=== PATIENT | male | born 1945 | race Caucasian/White ===

== ENCOUNTER → 2016-10-31 | Outpatient (CLI) | payer MEDICARE | END | disposition home or self-care (01) | LOC: RADUSWWP 13:33 | PROVIDERS: ATTEND Internal Medicine Rheumatology | DX: I82.409 Acute embolism and thrombosis of unspecified deep veins of unspecified lower extremity (principal) | CPT/HCPCS: 93923 ==

== ENCOUNTER → 2017-08-12 | Outpatient (CLI) | payer MEDICARE ==
--- NOTE | 2017-08-12 09:06 | BD ---
EXAMINATION TYPE: . Bone Density DATE OF EXAM: 08/12/2017 COMPARISON: NONE CLINICAL HISTORY: Pathologic tibial stress fracture Height: 5 FT 11 IN Weight: 258 FRAX RISK QUESTIONS: History of Fracture in Adulthood: YES Secondary Osteoporosis: Rheumatoid Arthritis: YES RISK FACTORS HISTORY OF: Active: YES Lost more than 2 inches in height since high school: YES MEDICATIONS: Additional Medications: AZITHROMYCIN, HYDROXYCHLOROQUINE, MONTELUKAST, CLARITIN, ALVESCO,FLONASE Additional History: RECENT STRESS FX TIB/FIB EXAM MEASUREMENTS: Bone mineral densitometry was performed using the Elevate System. Bone mineral density as measured about the Lumbar spine is: ----- L1-L4(G/cm2): 1.251 T Score Values are as follows: ----- L2: 0.5 ----- L3: 0.2 ----- L4: 1.4 ----- L1-L4: 0.6 BASELINE Bone mineral density about the R hip (g/cm2): 0.857 Bone mineral density about the L hip (g/cm2): 0.866 T Score values are as follows: -----R Neck: -1.3 -----L Neck: -1.2 -----R Total: -0.8 -----L Total: -1.0 BASELINE IMPRESSION: Osteopenia (T Score between -2.5 and -1) at femoral neck level in both hips. There is slightly increased risk of fracture and the patient may be considered for treatment. Re-Screen 2-5 years. NOTE: T-SCORE=SD OF THE YOUNG ADULT MEAN.
== END | disposition home or self-care (01) ==
LOC: RADBDWWP 07:03
PROVIDERS: ATTEND Internal Medicine Rheumatology
DX: M85.851 Other specified disorders of bone density and structure, right thigh (principal); M85.852 Other specified disorders of bone density and structure, left thigh
CPT/HCPCS: 77080

== ENCOUNTER 2018-02-15 08:49 | Emergency (ER) | payer MEDICARE ==
[2018-02-15 09:17] VITALS: RESP 18
[2018-02-15] MEDS ORDERED: SODIUM CHLORIDE 0.9% 500 ML 500 ML IV STA (09:44)
[2018-02-15] MEDS ORDERED: ONDANSETRON 4 MG/2 ML VIAL IVP STA (09:44)
[2018-02-15] MEDS ORDERED: MORPHINE SULFATE 4 MG/ML SYRINGE IV STA (09:44)
--- NOTE | 2018-02-15 09:52 | ED ---
General Adult HPI - General Chief complaint: Abdominal Pain Stated complaint: POSS KIDNEY STONE Time Seen by Provider: 02/15/18 09:22 Source: patient, RN notes reviewed Mode of arrival: ambulatory Limitations: no limitations - History of Present Illness Initial comments: Patient 72-year-old male presenting to the emergency room today with a chief complaint of right-sided flank pain. Patient does admit that he had pain that started 5 days ago. He states he was going to come here to the hospital when pain went away and improved. Patient states that last night pain return. He states it is located in the right flank with some radiation to the front. States feels similar to kidney stones that he's had in the past. Patient states that on his way here the pain was worse and now is beginning to improve once again. States still feeling some discomfort that is similar to kidney stones that he's had before. Patient does admit that he did see some blood with a blood clot in his urine the other day when he was straining his urine. Admits to nausea. Patient denies any other complaints. Patient denies any recent fever, chills, shortness of breath, chest pain, nausea or vomiting, headaches or visual changes, or any other complaints. - Related Data Home Medications Medication Instructions Recorded Confirmed Ascorbic Acid [Vitamin C] 500 mg PO BID 02/15/18 02/15/18 Cholecalciferol [Vitamin D3] 1,000 unit PO BID 02/15/18 02/15/18 Folic Acid 1 mg PO DAILY 02/15/18 02/15/18 Glucosam/Zach-Msm1/C/Clay/Bosw 1 tab PO BID 02/15/18 02/15/18 [Glucosamine-Chondroitin Tablet] Hydroxychloroquine Sulfate 200 mg PO BID 02/15/18 02/15/18 [Plaquenil] Montelukast [Singulair] 10 mg PO HS 02/15/18 02/15/18 Multivitamins, Thera [Multivitamin 1 tab PO DAILY 02/15/18 02/15/18 (formulary)] Naproxen Sodium [Aleve] 220 mg PO BID 02/15/18 02/15/18 [place]-3 Fatty Acids/Fish Oil [Fish 1 cap PO BID 02/15/18 02/15/18 Oil 1,000 mg Softgel] Previous Rx's Medication Instructions Recorded Hydrocodone/Acetaminophen [[place] 1 each PO Q6HR PRN #12 tab 02/15/18 5-325] Ondansetron Odt [Zofran ODT] 4 mg PO Q8HR PRN #20 tab 02/15/18 Tamsulosin [Flomax] 0.4 mg PO DAILY #10 cap 02/15/18 Allergies Allergy/AdvReac Type Severity Reaction Status Date / Time hydromorphone HCl Allergy Rash/Hives Verified 02/15/18 10:35 [From Dilaudid] Review of Systems ROS Statement: Those systems with pertinent positive or pertinent negative responses have been documented in the HPI. ROS Other: All systems not noted in ROS Statement are negative. Past Medical History Past Medical History: CVA/TIA, Hypertension Additional Past Medical History / Comment(s): multiple kidney stones History of Any Multi-Drug Resistant Organisms: None Reported Past Surgical History: Hernia Repair, Orthopedic Surgery Additional Past Surgical History / Comment(s): L knee, deviated septum Past Psychological History: No Psychological Hx Reported Smoking Status: Never smoker Past Alcohol Use History: Occasional Past Drug Use History: None Reported General Exam - General Exam Comments Initial Comments: General: The patient is awake and alert, in no distress, and does not appear acutely ill. Eye: Pupils are equal, round and reactive to light, extra-ocular movements are intact. No nystagmus. There is normal conjunctiva bilaterally. No signs of icterus. Ears, nose, mouth and throat: There are moist mucous membranes and no oral lesions. Neck: The neck is supple, there is no tenderness or JVD. Cardiovascular: There is a regular rate and rhythm. No murmur, rub or gallop is appreciated. Respiratory: Lungs are clear to auscultation, respirations are non-labored, breath sounds are equal. No wheezes, stridor, rales, or rhonchi. Gastrointestinal: Soft, non-distended, non-tender abdomen without masses or organomegaly noted. There is no rebound or guarding present. No CVA tenderness. Musculoskeletal: Normal ROM, no tenderness. Strength 5/5. Sensation intact. Pulses equal bilaterally 2+. Neurological: A&O x 3. CN II-XII intact, There are no obvious motor or sensory deficits. Coordination appears grossly intact. Speech is normal. Skin: Skin is warm and dry and no rashes or lesions are noted. Psychiatric: Cooperative, appropriate mood & affect, normal judgment. Limitations: no limitations Course Vital Signs 02/15/18 09:14 Temperature 97.6 F Pulse Rate 64 Respiratory 18 Rate Blood Pressure 158/86 O2 Sat by Pulse 100 Oximetry Medical Decision Making - Medical Decision Making This reexamined at this time shows no signs of distress. Resting comfortable. Patient's CT and pelvis reviewed does show a 5 mm stone in the left proximal ureter with mild hydronephrosis. Patient's labs reviewed unremarkable. Patient 's resting comfortably at this time. Case discussed with attending physician Dr. Carrillo. Patient will be discharged home given short prescription of pain medication, Flomax, nausea medication. He is advised follow-up with urology. Advised return if any symptoms increase or worsen or for any other concerns. - Lab Data Result diagrams: 02/15/18 10:10 02/15/18 10:10 Lab Results 02/15/18 02/15/18 02/15/18 Range/Units 10:10 10:10 10:10 WBC 5.6 (3.8-10.6) k/uL RBC 4.76 (4.30-5.90) m/uL Hgb 14.3 (13.0-17.5) gm/dL Hct 42.0 (39.0-53.0) % MCV 88.2 (80.0-100.0) fL MCH 30.0 (25.0-35.0) pg MCHC 34.0 (31.0-37.0) g/dL RDW 13.7 (11.5-15.5) % Plt Count 196 (150-450) k/uL Neutrophils % 71 % Lymphocytes % 19 % Monocytes % 6 % Eosinophils % 2 % Basophils % 1 % Neutrophils # 4.0 (1.3-7.7) k/uL Lymphocytes # 1.0 (1.0-4.8) k/uL Monocytes # 0.3 (0-1.0) k/uL Eosinophils # 0.1 (0-0.7) k/uL Basophils # 0.0 (0-0.2) k/uL Sodium 142 (137-145) mmol/L Potassium 4.4 (3.5-5.1) mmol/L Chloride 109 H (98-107) mmol/L Carbon Dioxide 26 (22-30) mmol/L Anion Gap 7 mmol/L BUN 17 (9-20) mg/dL Creatinine 0.87 (0.66-1.25) mg/dL Est GFR (CKD-EPI)AfAm >90 (>60 ml/min/1.73 sqM) Est GFR (CKD-EPI)NonAf 86 (>60 ml/min/1.73 sqM) Glucose 101 H (74-99) mg/dL Calcium 9.8 (8.4-10.2) mg/dL Total Bilirubin 1.1 (0.2-1.3) mg/dL AST 26 (17-59) U/L ALT 31 (21-72) U/L Alkaline Phosphatase 93 (38-126) U/L Total Protein 7.0 (6.3-8.2) g/dL Albumin 4.0 (3.5-5.0) g/dL Amylase 90 (30-110) U/L Lipase 108 (23-300) U/L Urine Color Yellow Urine Appearance Clear (Clear) Urine pH 6.0 (5.0-8.0) Ur Specific [place] 1.015 (1.001-1.035) Urine Protein Negative (Negative) Urine Glucose (UA) Negative (Negative) Urine Ketones Negative (Negative) Urine Blood Trace H (Negative) Urine Nitrite Negative (Negative) Urine Bilirubin Negative (Negative) Urine Urobilinogen <2.0 (<2.0) mg/dL Ur Leukocyte Esterase Negative (Negative) Urine RBC 10 H (0-5) /hpf Urine Mucus Rare H (None) /hpf Disposition Clinical Impression: Kidney stone Disposition: HOME SELF-CARE Condition: Good Instructions: Kidney Stones (ED) Additional Instructions: Please use medication as discussed. Please follow-up with urology/family doctor in the next 2 days of symptoms have not improved. Please return to emergency room if the symptoms increase or worsen or for any other concerns. Prescriptions: Hydrocodone/Acetaminophen [[place] 5-325] 1 each PO Q6HR PRN #12 tab PRN Reason: Pain Ondansetron Odt [Zofran ODT] 4 mg PO Q8HR PRN #20 tab PRN Reason: Nausea Tamsulosin [Flomax] 0.4 mg PO DAILY #10 cap Is patient prescribed a controlled substance at d/c from ED?: No Referrals: Satish Rogers MD [Primary Care Provider] - 1-2 days William Vargas MD [STAFF PHYSICIAN] - 1-2 days Time of Disposition: 11:50
[2018-02-15 10:30] LABS: Basophils % (A) 1 %; Eosinophils # (A) 0.1 k/uL (0-0.7); Eosinophils % (A) 2 %; HGB 14.3 gm/dL (13.0-17.5); Lymphocytes % (A) 19 %; MCV 88.2 fL (80.0-100.0); Mean Platelet Volume 7.4; Monocytes # (A) 0.3 k/uL (0-1.0); Monocytes % (A) 6 %; Neutrophils % (A) 71 %; Platelet Count 196 k/uL (150-450); RBC 4.76 m/uL (4.30-5.90); RDW 13.7 % (11.5-15.5); WBC 5.6 k/uL (3.8-10.6)
[2018-02-15 10:33] LABS: Appearance,Urine Clear (Clear); Bilirubin,Urine Negative (Negative); Blood,Urine Trace (Negative); Color,Urine Yellow; Glucose,Urine (UA) Negative (Negative); Ketones,Urine Negative (Negative); Leukocyte Esterase,Urine Negative (Negative); Mucus,Urine Rare /hpf; Nitrite,Urine Negative (Negative); Protein,Urine Negative (Negative); RBC,Urine 10 /hpf (0-5); Specific Gravity,Urine 1.015 (1.001-1.035); Urobilinogen,Urine <2.0 mg/dL (<2.0)
--- NOTE | 2018-02-15 10:39 | XR ---
EXAMINATION TYPE: XR KUB DATE OF EXAM: 02/15/2018 10:35 AM CLINICAL HISTORY: Right flank pain with hematuria, history of kidney stones TECHNIQUE: Two Upright KUB images of the abdomen are obtained. COMPARISON: None. FINDINGS: Scattered gas is seen in non-distended small bowel loops. Gas and fecal material is seen in non-distended colon. There is no pneumoperitoneum or abnormal calcification appreciated. Spleen is s omewhat prominent. The lung bases are clear . Moderate joint space loss in both hips is seen. IMPRESSION: Overall nonobstructive bowel gas pattern. No definitive nephrolithiasis. Possible splenomegaly.
[2018-02-15 10:41] LABS: ALT 31 U/L (21-72); AST 26 U/L (17-59); Alkaline Phosphatase 93 U/L (38-126); Amylase 90 U/L (30-110); Anion Gap 7 mmol/L; Blood Urea Nitrogen 17 mg/dL (9-20); Calcium 9.8 mg/dL (8.4-10.2); Carbon Dioxide 26 mmol/L (22-30); Chloride 109 mmol/L (98-107); Glucose 101 mg/dL (74-99); Lipase 108 U/L (23-300); Potassium 4.4 mmol/L (3.5-5.1); Sodium 142 mmol/L (137-145); Total Bilirubin 1.1 mg/dL (0.2-1.3)
--- NOTE | 2018-02-15 11:00 | CT ---
EXAMINATION TYPE: CT abdomen pelvis wo con DATE OF EXAM: 02/15/2018 HISTORY: Rt flank pain and hematuria CT DLP: 853.5 mGycm. Automated Exposure Control for Dose Reduction was Utilized. TECHNIQUE: CT scan of the abdomen and pelvis is performed without oral or IV contrast. COMPARISON: NONE FINDINGS: Within the limitations of a non-contrast study, the following observations are made. LUNG BASES: Dependent atelectasis in both bases is present. LIVER/GB: Liver is isodense relative to spleen suggesting mild diffuse fatty infiltration. There is n onspecific 2.0 cm low dense lesion lateral right hepatic lobe axial image 37 that warrants follow-up. Hounsfield units average 44. PANCREAS: No significant abnormality is seen. SPLEEN: No significant abnormality is seen. ADRENALS: No significant abnormality is seen. KIDNEYS: Single 1 to 2 mm calculus left kidney coronal image 54 mid to lower pole level is felt prese nt. No hydronephrosis obstructing left ureter calculi are seen. There is 6 mm calculus right kidney upper pole level. There is obstructing 5 mm calculus proximal rig ht ureter coronal image 52 causing mild right-sided hydronephrosis. Some scattered pelvic phleboliths are seen. No intraluminal calculus and bladder is clearly identified. BOWEL: Diverticula in the sigmoid colon are present. No CT evidence for acute diverticulitis. Normal -appearing appendix is seen from cecum. No suspicious small or large bowel dilatation is present. GENITAL ORGANS: Prostate gland is upper limits of normal in size. LYMPH NODES: No greater than 1cm abdominal or pelvic lymph nodes are appreciated. OSSEOUS STRUCTURES: Hemangioma suspected L2 level. There is vacuum disc phenomenon with mild disc spa ce narrowing and mild to moderate anterior spurring L4-L5 level. OTHER: No significant additional abnormality is seen. IMPRESSION: There is 5 mm calculus proximal right ureter causing mild right-sided hydronephrosis.
[2018-02-15] MEDS ORDERED: HYDROcodone/APAP 5-325MG 1 EACH TAB PO STA (12:24)
[2018-02-15 12:36] VITALS: BP 120/76; PULSE 65; TEMP 98.7
== END 2018-02-15 12:38 | disposition home or self-care (01) ==
LOC: EC 08:49
DX: N13.2 Hydronephrosis with renal and ureteral calculous obstruction (principal); I10 Essential (primary) hypertension; Z86.73 Personal history of transient ischemic attack (TIA), and cerebral infarction without residual deficits; Z79.1 Long term (current) use of non-steroidal anti-inflammatories (NSAID); Z79.899 Other long term (current) drug therapy; Z88.5 Allergy status to narcotic agent
CPT/HCPCS: 36415; 80053; 82150; 83690; 85025; 81001; 74018; 74176; 99284; 96374; 96375; 96361 ×2; J2270; J2405

== ENCOUNTER → 2019-12-14 | Outpatient (CLI) | payer MEDICARE ==
--- NOTE | 2019-12-14 10:07 | CT ---
EXAMINATION TYPE: CT abdomen wo/w con DATE OF EXAM: 12/14/2019 COMPARISON: CT abdomen and pelvis February 15, 2018. No prior ultrasound at this hospital. HISTORY: neutropenia, abn US. History of renal stones. CT DLP: 2249.4 mGycm, Automated Exposure Control for Dose Reduction was Utilized. CONTRAST: CT scan of the abdomen is performed with oral and without and with IV Contrast, patient injected with 100 mL of Isovue 300. FINDINGS: LUNG BASES: No significant abnormality is appreciated. LIVER/GB: The noncontrast images liver heterogeneously hypodense relative to spleen consistent with m ild diffuse fatty infiltration. There is vague peripheral 2 to 2.5 cm lesion right hepatic lobe anter iorly with heterogeneous peripheral enhancement and centripetal filling on delayed images, vague hypo density on noncontrast images. Lesion fairly stable in size from 2018 study. Benign hemangioma suspec joslyn. PANCREAS: No significant abnormality is seen. SPLEEN: Spleen stable and normal in size. ADRENALS: No significant abnormality is seen. KIDNEYS:. There are 2 nonobstructing right renal calculi measuring up between 4 to 5 mm long axis. Th ere is single 2-3 mm calculus left kidney mid to lower pole level coronal image 57. Cortical thinning left kidney. Symmetric cortical medullary uptake and excretion without hydronephrosis seen bilateral ly. A few simple-appearing thin-walled cysts centrally in the left kidney or parapelvic cyst. There i s larger partially exophytic thin-walled 3.1 cm cyst medially upper pole of the left kidney. BOWEL: Oral contrast reaches level of the terminal ileum. No suspicious small or large bowel dilatati on. LYMPH NODES: No greater than 1cm abdominal lymph nodes are appreciated. OSSEOUS STRUCTURES: Large hemangioma suspected involving L2 vertebra. Prominent Schmorl node superior L4 endplate. Mild to moderate disc space narrowing along with mild to moderate spurring right L4-L5 level. Some trabeculation and cortical prominence of the visualized pelvis. OTHER: No significant additional abnormality is seen. IMPRESSION: 1. Bilateral nonobstructing renal calculi. No hydronephrosis or obstructing renal calculi. 2. Mild diffuse fatty infiltration of liver. A 2 to 2.5 cm right hepatic lobe peripheral lesion stabl e in size from prior CT presumed benign hemangioma. 3. Cortical prominence and trabeculation of the visualized pelvis, cannot exclude underlying Paget's disease. Correlate clinically. Consider whole body bone scan to further evaluate.
== END | disposition home or self-care (01) ==
LOC: RADCTMAIN 07:23
PROVIDERS: ATTEND Internal Medicine Medical Oncology
DX: K76.0 Fatty (change of) liver, not elsewhere classified (principal); N20.0 Calculus of kidney; K76.89 Other specified diseases of liver; D70.9 Neutropenia, unspecified; Z88.1 Allergy status to other antibiotic agents; Z88.5 Allergy status to narcotic agent
CPT/HCPCS: 82565; 84520; 74170; 36415; Q9967